=== PATIENT | female | born 1960 | race Caucasian/White ===

== ENCOUNTER → 2016-06-09 | Outpatient (CLI) | payer MEDICARE, OTHER ==
[~2016-06-09] MED LIST: ARTHRITIS PAIN650 M2 PO; ASPIR-LOW81 MG PO; ELAVIL 25 MG TA25 MG PO; FLEXERIL 10 MG10 MG PO; HUMULIN 70100 UNIT/1 SQ; LANTUS100 UNIT/1 SQ; LOPRESSOR 25 MG25 MG PO; NEURONTIN 400400 MG PO; PREDNISONE20 MG PO; PROTONIX40 MG PO; ROBITUSSIN DM473 ML PO; SINGULAIR10 MG PO; SYNTHROID25 MCG PO; ZOCOR20 MG PO
== END ==
LOC: RAD 11:19
DX: M54.6 Pain in thoracic spine (principal); M47.814 Spondylosis without myelopathy or radiculopathy, thoracic region; M47.812 Spondylosis without myelopathy or radiculopathy, cervical region
CPT/HCPCS: 72050; 72072

== ENCOUNTER 2020-04-25 15:30 | Observation (INO) | payer MEDICARE, OTHER ==
[~2020-04-25] VITALS: Ht 157.5 cm; Wt 133.8 kg
[~2020-04-25 15:30] MED LIST changes: +AUGMENTIN 875-1 EACH PO; +CYCLOBENZAPRINE10 MG PO; +ELIQUIS2.5 MG PO; +FLAGYL500 MG PO; +HUMULIN 70100 UNIT/1 SC; +LANTUS100 UNIT/1 SC; +LORTAB 5-325 M1 EACH PO; +LOSARTAN POTASS25 MG PO; +NOVOLOG 10100 UNITS/ SQ; +PERCOCET 10-321 EACH PO; +PERCOCET 5/325 T1 EA PO; +TRAMADOL HCL50 MG PO; +VENTOLIN/PROVE0.5 ML INH; +ZYRTEC10 MG PO
[2020-04-25 16:36] LABS: RED BLOOD COUNT 4.31 M/UL (4.00-5.10); WHITE BLOOD COUNT 10.4 K/UL (4.5-11.0)
[2020-04-25 16:54] LABS: BUN/CREATININE RATIO 17 (0-10)
[2020-04-25] MEDS ORDERED: CETIRIZINE HCL10 MG PO (22:25)
[2020-04-25] MEDS ORDERED: MONTELUKAST SOD10 MG PO (22:25)
[2020-04-25] MEDS ORDERED: ESTRADIOL42.5 GM VG (22:26)
[2020-04-25] MEDS ORDERED: CLARITIN 10MG T10 MG PO (22:26)
[2020-04-25] MEDS ORDERED: ZETIA10 MG PO (22:27)
[2020-04-25] MEDS ORDERED: TYLENOL EXTRA500 MG PO (22:29)
[2020-04-25] MEDS ORDERED: VENTOLIN HFA 66.7 GM INH (22:30)
[2020-04-25] MEDS ORDERED: FLONASE 0.05% N16 GM (22:31)
[2020-04-26 03:17] LABS: HEMOGLOBIN 11.9 gm/dl (12.3-15.3); RED BLOOD COUNT 4.26 M/UL (4.00-5.10); WHITE BLOOD COUNT 9.4 K/UL (4.5-11.0)
[2020-04-26 04:08] LABS: BUN/CREATININE RATIO 12 (0-10)
[2020-04-26] MEDS ORDERED: PROAIR HFA8.5 GM INH (14:25)
[2020-04-26] MEDS ORDERED: MEDROL DOSEPAK 24 MG PO (14:28)
== END 2020-04-26 17:20 | disposition home or self-care (01) ==
LOC: ER1 15:30 → MED SURG 4 17:48 → CDU 17:48 → MED SURG 4 20:16
PROVIDERS: Emergency Medicine; Physician Assistant Medical; ADMIT Internal Medicine
DX: R07.9 Chest pain, unspecified (principal); R06.02 Shortness of breath; J45.909 Unspecified asthma, uncomplicated; I10 Essential (primary) hypertension; E03.9 Hypothyroidism, unspecified; E11.9 Type 2 diabetes mellitus without complications; E78.5 Hyperlipidemia, unspecified; E66.01 Morbid (severe) obesity due to excess calories; Z68.43 Body mass index [BMI] 50.0-59.9, adult; Z98.890 Other specified postprocedural states; Z20.822 Contact with and (suspected) exposure to COVID-19; Z88.5 Allergy status to narcotic agent; Z88.8 Allergy status to other drugs, medicaments and biological substances; Z79.4 Long term (current) use of insulin; Z79.899 Other long term (current) drug therapy
CPT/HCPCS: 36415; 71045; 80048; 80053; 80061; 81001; 82550; 82553; 82962; 83036; 83690; 83735; 83874; 83880; 84100; 84484; 85025; 85027; 85379; 85610; 85730; 87086; 93005; 96372; 96374; 99285; G0378; U0002

== ENCOUNTER 2020-12-13 09:58 | Inpatient (IN) | payer MEDICARE ==
[~2020-12-13] VITALS: Ht 157.5 cm; Wt 136.1 kg
[~2020-12-13 09:58] MED LIST changes: +AMITRIPTYLINE H25 MG PO; +CETIRIZINE HCL10 MG PO; +CLARITIN 10MG T10 MG PO; +ESTRADIOL42.5 GM VG; +FLONASE 0.05% N16 GM; +GABAPENTIN800 MG PO; +MEDROL DOSEPAK 24 MG PO; +MONTELUKAST SOD10 MG PO; +PROAIR HFA8.5 GM INH; +TYLENOL EXTRA500 MG PO; +ZETIA10 MG PO
[2020-12-13 10:41] LABS: HEMOGLOBIN 12.9 gm/dl (12.3-15.3); RED BLOOD COUNT 4.78 M/UL (4.00-5.10); WHITE BLOOD COUNT 17.7 K/UL (4.5-11.0)
[2020-12-13 11:11] LABS: BUN/CREATININE RATIO 23 (0-10)
[2020-12-13] MEDS ORDERED: LANTUS100 UNIT/1 SQ (13:32)
[2020-12-13] MEDS ORDERED: MYCOSTATIN100000 UTS PO (13:32)
[2020-12-13] MEDS ORDERED: HUMULIN 70100 UNIT/1 SQ (13:33)
[2020-12-13] MEDS ORDERED: CYCLOBENZAPRINE10 MG PO (13:34)
[2020-12-14 07:20] LABS: RED BLOOD COUNT 4.83 M/UL (4.00-5.10); WHITE BLOOD COUNT 14.7 K/UL (4.5-11.0)
[2020-12-15 03:55] LABS: HEMOGLOBIN 12.8 gm/dl (12.3-15.3); RED BLOOD COUNT 4.87 M/UL (4.00-5.10); WHITE BLOOD COUNT 15.4 K/UL (4.5-11.0)
[2020-12-15] MEDS ORDERED: DECADRON6 MG PO (10:54)
== END 2020-12-15 13:02 | disposition home or self-care (01) | DRG 177 ==
LOC: ER1 09:58 → CDU 12:44 → M/S 14:08
PROVIDERS: Physician Assistant; Physician Assistant Medical; ADMIT Internal Medicine
PROC: 8E0ZXY6 Isolation (ICD-10-PCS; principal; 2020-12-13)
PROC: XW033E5 Introduction of Remdesivir Anti-infective into Peripheral Vein, Percutaneous Approach, New Technology Group 5 (ICD-10-PCS; 2020-12-13)
PROC: 3E0333Z Introduction of Anti-inflammatory into Peripheral Vein, Percutaneous Approach (ICD-10-PCS; 2020-12-13)
DX: U07.1 COVID-19 (principal); J96.01 Acute respiratory failure with hypoxia; Z68.43 Body mass index [BMI] 50.0-59.9, adult; T38.0X5A Adverse effect of glucocorticoids and synthetic analogues, initial encounter; J45.909 Unspecified asthma, uncomplicated; E78.5 Hyperlipidemia, unspecified; E03.9 Hypothyroidism, unspecified; E11.9 Type 2 diabetes mellitus without complications; E66.01 Morbid (severe) obesity due to excess calories; I10 Essential (primary) hypertension; Z98.51 Tubal ligation status; Z79.4 Long term (current) use of insulin
CPT/HCPCS: 36415; 36600; 70450; 71045; 80048; 80053; 81001; 82550; 82553; 82803; 82962; 83605; 83735; 83874; 84484; 85025; 85027; 85379; 86140; 87040; 93005; 94640; 94760; 96374; 96375; 99285; J1100; J1650; J2405; J2543; J2550; J7030; U0002

== ENCOUNTER 2021-04-03 15:22 | Emergency (ER) | payer MEDICARE ==
[~2021-04-03 15:22] MED LIST changes: +DECADRON6 MG PO; +MYCOSTATIN100000 UTS PO
[2021-04-03 16:24] LABS: HEMOGLOBIN 11.8 gm/dl (12.3-15.3); RED BLOOD COUNT 4.37 M/UL (4.00-5.10); WHITE BLOOD COUNT 12.3 K/UL (4.5-11.0)
== END 2021-04-03 19:19 | disposition home or self-care (01) ==
LOC: ER1 15:22
PROVIDERS: Physician Assistant
DX: R20.0 Anesthesia of skin (principal); E11.9 Type 2 diabetes mellitus without complications; Z88.5 Allergy status to narcotic agent
CPT/HCPCS: 70450; 80053; 82550; 82553; 83874; 84484; 85025; 93005; 99283

== ENCOUNTER → 2021-06-08 | Outpatient (CLI) | payer MEDICARE | LOC: SLEEP 09:00 | DX: G47.33 Obstructive sleep apnea (adult) (pediatric) (principal) | CPT/HCPCS: 95810 ==

== ENCOUNTER 2021-07-20 10:58 | Inpatient (IN) | payer MEDICARE ==
[~2021-07-20] VITALS: Ht 157.5 cm; Wt 133.0 kg
[~2021-07-20 10:58] MED LIST changes: +ASMANEX HFA13 GM INH
[2021-07-20 12:40] LABS: HEMOGLOBIN 13.6 gm/dl (12.3-15.3); RED BLOOD COUNT 5.1 M/UL (4.00-5.10); WHITE BLOOD COUNT 12.2 K/UL (4.5-11.0)
[2021-07-20 12:58] LABS: BUN/CREATININE RATIO 11 (0-10)
[2021-07-21 01:47] LABS: HEMOGLOBIN 12.4 gm/dl (12.3-15.3); RED BLOOD COUNT 4.8 M/UL (4.00-5.10); WHITE BLOOD COUNT 11.3 K/UL (4.5-11.0)
[2021-07-21 02:12] LABS: BUN/CREATININE RATIO 12 (0-10)
[2021-07-21] MEDS ORDERED: PREDNISOLONE AC10 ML OP (11:16)
[2021-07-21] MEDS ORDERED: BACLOFEN20 MG PO (11:16)
[2021-07-21] MEDS ORDERED: TERBINAFINE HC250 MG PO (11:18)
[2021-07-21] MEDS ORDERED: ASPIRIN EC81 MG PO (11:20)
[2021-07-22 01:53] LABS: HEMOGLOBIN 12.4 gm/dl (12.3-15.3); RED BLOOD COUNT 4.67 M/UL (4.00-5.10); WHITE BLOOD COUNT 13.3 K/UL (4.5-11.0)
[2021-07-23 01:30] LABS: HEMOGLOBIN 11.2 gm/dl (12.3-15.3); RED BLOOD COUNT 4.38 M/UL (4.00-5.10); WHITE BLOOD COUNT 13.4 K/UL (4.5-11.0)
[2021-07-24 02:20] LABS: HEMOGLOBIN 11.1 gm/dl (12.3-15.3); RED BLOOD COUNT 4.25 M/UL (4.00-5.10); WHITE BLOOD COUNT 11.6 K/UL (4.5-11.0)
[2021-07-25 03:43] LABS: HEMOGLOBIN 10.9 gm/dl (12.3-15.3); RED BLOOD COUNT 4.14 M/UL (4.00-5.10); WHITE BLOOD COUNT 9.7 K/UL (4.5-11.0)
[2021-07-25] MEDS ORDERED: COREG6.25 MG PO (10:39)
== END 2021-07-25 13:25 | disposition home or self-care (01) | DRG 682 ==
LOC: ER1 10:58 → CDU 17:51 → PROG CARE 17:51
PROVIDERS: Internal Medicine; Internal Medicine Infectious Disease; Physician Assistant; ADMIT Internal Medicine
PROC: B24BZZZ Ultrasonography of Heart with Aorta (ICD-10-PCS; principal; 2021-07-21)
DX: N17.0 Acute kidney failure with tubular necrosis (principal); G92.8 Other toxic encephalopathy; Z20.822 Contact with and (suspected) exposure to COVID-19; Z68.43 Body mass index [BMI] 50.0-59.9, adult; I16.1 Hypertensive emergency; E78.5 Hyperlipidemia, unspecified; Z96.651 Presence of right artificial knee joint; I10 Essential (primary) hypertension; J45.909 Unspecified asthma, uncomplicated; G47.00 Insomnia, unspecified; I16.0 Hypertensive urgency; E66.01 Morbid (severe) obesity due to excess calories; I34.0 Nonrheumatic mitral (valve) insufficiency; I95.9 Hypotension, unspecified; E11.9 Type 2 diabetes mellitus without complications; G47.33 Obstructive sleep apnea (adult) (pediatric); E03.9 Hypothyroidism, unspecified; Z79.01 Long term (current) use of anticoagulants; Z79.82 Long term (current) use of aspirin; Z98.84 Bariatric surgery status; Z90.49 Acquired absence of other specified parts of digestive tract; Z98.51 Tubal ligation status; Z98.890 Other specified postprocedural states; Z88.8 Allergy status to other drugs, medicaments and biological substances; Z88.5 Allergy status to narcotic agent; Z91.012 Allergy to eggs; Z79.4 Long term (current) use of insulin
CPT/HCPCS: ECHO; 36415; 70450; 70551; 71045; 71046; 80048; 80053; 81001; 82550; 82553; 82570; 82962; 83036; 83605; 83735; 84156; 84484; 85025; 85027; 85610; 85652; 86140; 87040; 87086; 93005; 93306; 93880; 94640; 94664; 94760; 96365; 96366; 96375; 96376; G0378; J0360; J1644; J2185; J2405; J2543; J3475; J7030; Q9967